=== PATIENT | female | born 1940 | race Caucasian/White ===

== ENCOUNTER → 2018-10-08 | Outpatient (CLI) | payer MEDICARE, OTHER ==
[2018-10-08 10:34] LABS: HEMATOCRIT 32.1 % (36.0-47.0); HEMOGLOBIN 11.1 g/dl (12.0-15.5); MEAN CORPUSCULAR HEMOGLOBIN 33.8 pg (27.0-33.0); MEAN CORPUSCULAR HGB CONC 34.6 g/dl (32.0-36.5); MEAN CORPUSCULAR VOLUME 97.9 fl (80.0-96.0); PLATELET COUNT, AUTOMATED 198 10^3/uL (150-450); RED BLOOD COUNT 3.28 10^6/uL (4.00-5.40); RED CELL DISTRIBUTION WIDTH 12.3 % (11.5-14.5); WHITE BLOOD COUNT 5.2 10^3/uL (4.0-10.0)
[2018-10-08 10:49] LABS: INR 1.15; PROTHROMBIN TIME 14.9 SECONDS (12.1-14.4)
[2018-10-08 11:11] LABS: ERYTHROCYTE SEDIMENTATION RATE 25 mm/hr (0-30)
[2018-10-08 11:25] LABS: ALBUMIN 3.8 GM/DL (3.2-5.2); ALBUMIN/GLOBULIN RATIO 1.23 (1.00-1.93); ALKALINE PHOSPHATASE 38 U/L (45-117); ALT/SGPT 31 U/L (12-78); ANION GAP 9 MEQ/L (8-16); AST/SGOT 23 U/L (7-37); BILIRUBIN,TOTAL 0.5 MG/DL (0.2-1.0); BLOOD UREA NITROGEN 20 MG/DL (7-18); CALCIUM LEVEL 8.9 MG/DL (8.8-10.2); CARBON DIOXIDE LEVEL 27 MEQ/L (21-32); CHLORIDE LEVEL 103 MEQ/L (98-107); GLUCOSE, FASTING 108 MG/DL (70-100); POTASSIUM SERUM 3.9 MEQ/L (3.5-5.1); SODIUM LEVEL 139 MEQ/L (136-145); TOTAL PROTEIN 6.9 GM/DL (6.4-8.2)
== END ==
LOC: M LAB 09:26
DX: Z01.818 Encounter for other preprocedural examination (principal); M17.11 Unilateral primary osteoarthritis, right knee; R94.31 Abnormal electrocardiogram [ECG] [EKG]; Z86.73 Personal history of transient ischemic attack (TIA), and cerebral infarction without residual deficits
CPT/HCPCS: 71046

== ENCOUNTER 2018-11-03 06:53 | Inpatient (IN) | payer MEDICARE, OTHER ==
[~2018-11-03 06:53] MED LIST: LR 1,000 ML IV
[2018-11-03] MEDS: ACETAMINOPHEN 500 MG TAB PO (07:45)
[2018-11-03] MEDS ORDERED: fentaNYL 100 MCG/2 ML INJECTION (J3010) As Ordered (07:55)
[2018-11-03] MEDS ORDERED: MIDAZOLAM INJ 2 MG/2 ML VIAL (J2250) As Ordered ×2 (07:55→10:04)
[2018-11-03 07:57] LABS: GLUCOSE, FASTING 131 MG/DL (70-100)
[2018-11-03] MEDS ORDERED: LABETALOL HCL 100 MG/20 ML VIAL As Ordered (08:05)
[2018-11-03] MEDS: MIDAZOLAM INJ 2 MG/2 ML VIAL (J2250) IV (08:05)
[2018-11-03] MEDS ORDERED: hydrALAZINE INJ 20 MG/ML VIAL As Ordered (08:05)
[2018-11-03] MEDS: hydrALAZINE INJ 20 MG/ML VIAL IV ×6 (08:07→11:58)
[2018-11-03] MEDS: LABETALOL HCL 100 MG/20 ML VIAL IV ×11 (08:10→18:36)
[2018-11-03] MEDS: fentaNYL 100 MCG/2 ML INJECTION (J3010) IV (08:30)
[2018-11-03] MEDS ORDERED: LOSARTAN 50 MG TAB PO (09:00)
[2018-11-03] MEDS: ceFAZolin 1GM INJ (J0690 PER 500MG) As Ordered (09:27)
[2018-11-03] MEDS ORDERED: LIDOCAINE 2% INJ 100 MG/5 ML SDV (FOR ANES.) As Ordered (10:04)
[2018-11-03] MEDS ORDERED: PROPOFOL 200 MG/20 ML VIAL As Ordered (10:04)
[2018-11-03] MEDS: EPINEPHrine INJ 1 MG/ML 1ML AMP As Ordered (10:35)
[2018-11-03] MEDS: TRANEXAMIC ACID 100 MG/ML 10ML VIAL As Ordered (10:35)
[2018-11-03] MEDS: BUPIVACAINE LIPOSOME/PF 1.3% 20ML VIAL (13.3MG/ML)(EXPAREL)(C9290 PER1MG) As Ordered (10:48)
[2018-11-03] MEDS: BUPIVACAINE HCL 0.25% 30 ML VIAL As Ordered (10:48)
[2018-11-03] MEDS ORDERED: MORPHINE 1MG/ML IN 0.9% NACL 100ML IV BAG As Ordered (11:10)
[2018-11-03] MEDS: LR 1,000 ML IV ×2 (11:17→14:55)
[2018-11-03] MEDS: MORPHINE 1MG/ML IN 0.9% NACL 100ML IV BAG IV (11:25)
[2018-11-03] MEDS ORDERED: PERCOCET 5MG/325MG TAB PO (11:30)
[2018-11-03] MEDS ORDERED: ONDANSETRON 4MG/2ML VIAL (J2405) IV ×2 (11:30→11:45)
[2018-11-03] MEDS ORDERED: fentaNYL 100 MCG/2 ML INJECTION (J3010) IV (11:30)
[2018-11-03] MEDS ORDERED: HYDROMORPHONE HCL 0.5 MG/ 0.5 ML SYRINGE (J1170 PER 1) IV (11:30)
[2018-11-03] MEDS ORDERED: LIDOCAINE 1% MDV 20ML VIAL (11:38)
[2018-11-03] MEDS ORDERED: dexameTHASONE 10 MG/1 ML VIAL PRES.FREE (J1100) (11:38)
[2018-11-03] MEDS ORDERED: ROPIvacaine 0.5% 30 ML INJECTION (J2795 PER 1MG) (11:38)
[2018-11-03] MEDS: VERAPAMIL 120 MG SR TAB PO (11:43)
[2018-11-03] MEDS: LOSARTAN 50 MG TAB PO (11:43)
[2018-11-03] MEDS ORDERED: NALBUPHINE HCL 10 MG/ML AMP (J2300) IV (11:45)
[2018-11-03] MEDS ORDERED: EPIDURAL/PCA KEYS XX (11:45)
[2018-11-03] MEDS ORDERED: diphenhydrAMINE INJ 50MG/ML VIAL (J1200) IV (11:45)
[2018-11-03] MEDS: METOPROLOL 5 MG/5 ML VIAL IV ×5 (14:15→18:35)
[2018-11-03] MEDS: cloNIDine 0.1 MG TAB PO ×2 (14:16→21:08)
[2018-11-03] MEDS: SIMVASTATIN 20 MG TAB PO (14:56)
[2018-11-03] MEDS: ASCORBIC ACID 500 MG TAB PO (14:56)
[2018-11-03] MEDS: VITAMIN D 1,000 INTERNATIONAL UNITS TABLET PO (14:56)
[2018-11-03] MEDS: NALOXONE INJ 0.4 MG/1 ML VIAL (J2310) IV (20:22)
[2018-11-04] MEDS: LR 1,000 ML IV
[2018-11-04] MEDS: cloNIDine 0.1 MG TAB PO ×3 (06:00→21:45)
[2018-11-04 06:12] LABS: HEMATOCRIT 27.5 % (36.0-47.0); HEMOGLOBIN 9.2 g/dl (12.0-15.5); MEAN CORPUSCULAR HEMOGLOBIN 33.9 pg (27.0-33.0); MEAN CORPUSCULAR HGB CONC 33.5 g/dl (32.0-36.5); MEAN CORPUSCULAR VOLUME 101.5 fl (80.0-96.0); PLATELET COUNT, AUTOMATED 162 10^3/uL (150-450); RED BLOOD COUNT 2.71 10^6/uL (4.00-5.40); RED CELL DISTRIBUTION WIDTH 12.5 % (11.5-14.5); WHITE BLOOD COUNT 7.8 10^3/uL (4.0-10.0)
[2018-11-04 06:31] LABS: ANION GAP 8 MEQ/L (8-16); BLOOD UREA NITROGEN 22 MG/DL (7-18); CALCIUM LEVEL 8.1 MG/DL (8.8-10.2); CARBON DIOXIDE LEVEL 25 MEQ/L (21-32); CHLORIDE LEVEL 104 MEQ/L (98-107); CREATININE FOR GFR 1.27 MG/DL (0.55-1.30); GLOMERULAR FILTRATION RATE 43.1 (>32); GLUCOSE, FASTING 185 MG/DL (70-100); POTASSIUM SERUM 4.3 MEQ/L (3.5-5.1); SODIUM LEVEL 137 MEQ/L (136-145)
[2018-11-04] MEDS: ONDANSETRON 4 MG TAB (S0181) PO ×3 (07:50→15:51)
[2018-11-04] MEDS ORDERED: diphenhydrAMINE 25 MG CAP PO (08:00)
[2018-11-04] MEDS: LOSARTAN 50 MG TAB PO (11:00)
[2018-11-04] MEDS: ASCORBIC ACID 500 MG TAB PO (11:02)
[2018-11-04] MEDS: SENOKOT S TAB PO ×2 (11:02→21:46)
[2018-11-04] MEDS: VERAPAMIL 120 MG SR TAB PO (11:02)
[2018-11-04] MEDS: VITAMIN D 1,000 INTERNATIONAL UNITS TABLET PO (11:02)
[2018-11-04] MEDS: MOM 30ML SUSPENSION UDC PO (11:03)
[2018-11-04] MEDS: MIRALAX *UNIT DOSE* 17GM PACKET PO (11:03)
[2018-11-04] MEDS: SIMVASTATIN 20 MG TAB PO (11:03)
[2018-11-04] MEDS: PERCOCET 5MG/325MG TAB PO ×3 (11:43→21:44)
[2018-11-04] MEDS: PANTOPRAZOLE 40MG INJ (PROTONIX) (C9113) IV (11:43)
[2018-11-04] MEDS: ACETAMINOPHEN TAB 650MG DOSE (2X325MG) PO (13:11)
[2018-11-04] MEDS: CALCIUM CARBONATE 500 MG CHEW U/D PO (14:00)
[2018-11-04] MEDS: SIMETHICONE 80 MG CHEW TAB PO (14:01)
[2018-11-04] MEDS: RIVAROXABAN 10 MG TAB (XARELTO) PO (18:02)
[2018-11-04] MEDS ORDERED: GLUCOSE 4 GM CHEW TABLET PO (18:15)
[2018-11-04] MEDS ORDERED: GLUCAGON FOR INJ 1 MG VIAL (J1610) SC (18:15)
[2018-11-04] MEDS ORDERED: DEXTROSE 50% 50 ML SYRINGE IV (18:15)
[2018-11-04 18:29] LABS: BEDSIDE GLUCOSE 184 MG/DL (83-110)
[2018-11-04 20:25] LABS: BEDSIDE GLUCOSE 167 MG/DL (83-110)
[2018-11-04] MEDS: HumaLOG INSULIN (NovoLOG) PER UNIT SC (21:00)
[2018-11-04] MEDS: BISACODYL 10 MG SUPP PR (21:46)
[2018-11-05] MEDS: PERCOCET 5MG/325MG TAB PO ×2 (03:11→07:44)
[2018-11-05] MEDS: cloNIDine 0.1 MG TAB PO (06:00)
[2018-11-05 06:02] LABS: HEMOGLOBIN 9.2 g/dl (12.0-15.5); MEAN CORPUSCULAR HEMOGLOBIN 34.2 pg (27.0-33.0); MEAN CORPUSCULAR HGB CONC 34.1 g/dl (32.0-36.5); MEAN CORPUSCULAR VOLUME 100.4 fl (80.0-96.0); PLATELET COUNT, AUTOMATED 152 10^3/uL (150-450); RED BLOOD COUNT 2.69 10^6/uL (4.00-5.40); RED CELL DISTRIBUTION WIDTH 12.4 % (11.5-14.5); WHITE BLOOD COUNT 8.1 10^3/uL (4.0-10.0)
[2018-11-05 06:29] LABS: ANION GAP 9 MEQ/L (8-16); BLOOD UREA NITROGEN 17 MG/DL (7-18); CARBON DIOXIDE LEVEL 24 MEQ/L (21-32); CHLORIDE LEVEL 98 MEQ/L (98-107); CREATININE FOR GFR 1.06 MG/DL (0.55-1.30); GLOMERULAR FILTRATION RATE 53.1 (>32); GLUCOSE, FASTING 148 MG/DL (70-100); POTASSIUM SERUM 3.5 MEQ/L (3.5-5.1); SODIUM LEVEL 131 MEQ/L (136-145)
[2018-11-05] MEDS: MAGNESIUM CITRATE 300 ML BTL PO (07:45)
[2018-11-05] MEDS: HumaLOG INSULIN (NovoLOG) PER UNIT SC ×4 (07:54→21:00)
[2018-11-05] MEDS: MIRALAX *UNIT DOSE* 17GM PACKET PO (08:58)
[2018-11-05] MEDS: PANTOPRAZOLE 40MG INJ (PROTONIX) (C9113) IV (08:58)
[2018-11-05] MEDS: MOM 30ML SUSPENSION UDC PO (09:00)
[2018-11-05] MEDS: VERAPAMIL 120 MG SR TAB PO (09:00)
[2018-11-05] MEDS: SIMVASTATIN 20 MG TAB PO (09:00)
[2018-11-05] MEDS: VITAMIN D 1,000 INTERNATIONAL UNITS TABLET PO (09:01)
[2018-11-05] MEDS: ASCORBIC ACID 500 MG TAB PO (09:01)
[2018-11-05] MEDS: SENOKOT S TAB PO ×2 (09:01→21:01)
[2018-11-05] MEDS: LOSARTAN 50 MG TAB PO (09:02)
[2018-11-05 11:45] LABS: BEDSIDE GLUCOSE 150 MG/DL (83-110)
[2018-11-05] MEDS: ACETAMINOPHEN 500 MG TAB PO ×2 (16:12→21:02)
[2018-11-05] MEDS: traMADol 50 MG TAB PO ×2 (16:12→21:00)
[2018-11-05 17:18] LABS: BEDSIDE GLUCOSE 166 MG/DL (83-110)
[2018-11-05] MEDS: RIVAROXABAN 10 MG TAB (XARELTO) PO (17:51)
[2018-11-05 22:41] LABS: BEDSIDE GLUCOSE 153 MG/DL (83-110)
[2018-11-06] MEDS: FLEET ENEMA PR (02:49)
[2018-11-06 06:09] LABS: HEMOGLOBIN 9.2 g/dl (12.0-15.5); MEAN CORPUSCULAR HGB CONC 35.4 g/dl (32.0-36.5); MEAN CORPUSCULAR VOLUME 98.9 fl (80.0-96.0); PLATELET COUNT, AUTOMATED 133 10^3/uL (150-450); RED BLOOD COUNT 2.63 10^6/uL (4.00-5.40); WHITE BLOOD COUNT 4.6 10^3/uL (4.0-10.0)
[2018-11-06 06:22] LABS: ANION GAP 8 MEQ/L (8-16); BLOOD UREA NITROGEN 25 MG/DL (7-18); CALCIUM LEVEL 7.7 MG/DL (8.8-10.2); CARBON DIOXIDE LEVEL 24 MEQ/L (21-32); CHLORIDE LEVEL 96 MEQ/L (98-107); CREATININE FOR GFR 1.22 MG/DL (0.55-1.30); GLOMERULAR FILTRATION RATE 45.1 (>32); GLUCOSE, FASTING 163 MG/DL (70-100); POTASSIUM SERUM 3.9 MEQ/L (3.5-5.1); SODIUM LEVEL 128 MEQ/L (136-145)
[2018-11-06] MEDS: HumaLOG INSULIN (NovoLOG) PER UNIT SC (08:18)
[2018-11-06] MEDS: PANTOPRAZOLE 40MG INJ (PROTONIX) (C9113) IV (08:18)
[2018-11-06] MEDS: ACETAMINOPHEN 500 MG TAB PO (08:19)
[2018-11-06] MEDS: SIMVASTATIN 20 MG TAB PO (08:19)
[2018-11-06] MEDS: VERAPAMIL 120 MG SR TAB PO (08:20)
[2018-11-06] MEDS: VITAMIN D 1,000 INTERNATIONAL UNITS TABLET PO (08:21)
[2018-11-06] MEDS: LOSARTAN 50 MG TAB PO (08:21)
[2018-11-06] MEDS: ASCORBIC ACID 500 MG TAB PO (08:21)
[2018-11-06] MEDS: SENOKOT S TAB PO (08:21)
[2018-11-06] MEDS: traMADol 50 MG TAB PO (08:27)
[2018-11-06] MEDS: MIRALAX *UNIT DOSE* 17GM PACKET PO (09:00)
[2018-11-06] MEDS: MOM 30ML SUSPENSION UDC PO (09:00)
== END 2018-11-06 09:25 | disposition home or self-care (01) | DRG 470 ==
LOC: M OR 06:53 → M MS5PR 12:40
PROVIDERS: Orthopaedic Surgery
PROC: 0SRC0J9 Replacement of Right Knee Joint with Synthetic Substitute, Cemented, Open Approach (ICD-10-PCS; principal; 2018-11-03 09:15)
DX: M17.11 Unilateral primary osteoarthritis, right knee (principal); I10 Essential (primary) hypertension; K75.81 Nonalcoholic steatohepatitis (NASH); Z79.899 Other long term (current) drug therapy; E78.5 Hyperlipidemia, unspecified; K21.9 Gastro-esophageal reflux disease without esophagitis; E11.9 Type 2 diabetes mellitus without complications; Z79.82 Long term (current) use of aspirin; Z96.652 Presence of left artificial knee joint; Z86.73 Personal history of transient ischemic attack (TIA), and cerebral infarction without residual deficits